=== PATIENT | male | born 1975 ===

== ENCOUNTER 2018-03-02 05:12 | Inpatient (IN) | payer MEDICAID, OTHER ==
[~2018-03-02] VITALS: Ht 182.9 cm; Wt 100.0 kg
[2018-03-02] MEDS ORDERED: THIAMINE 100MG TABLET PO ONE (05:30)
[2018-03-02] MEDS ORDERED: THIAMINE 100MG TABLET ONE (05:35)
[2018-03-02 05:47] LABS: BASOPHILS # (AUTO) 0.05 x10^3/uL (0-0.1); BASOPHILS % (AUTO) 1 % (0-1); EOSINOPHILS % (AUTO) 3 % (1-7); LYMPHOCYTES % (AUTO) 21 % (22-44); MD NO; MEAN CORPUSCULAR HEMOGLOBIN 31.2 pg (27.5-34.5); MEAN CORPUSCULAR HGB CONC 34.4 g/dL (33.2-36.2); MEAN CORPUSCULAR VOLUME 90.9 fL (81-97); MEAN PLATELET VOLUME 8.5 fL (7.4-10.4); MONOCYTES # (AUTO) 0.37 x10^3/uL (0.2-0.8); MONOCYTES % (AUTO) 10 % (2-9); NEUTROPHILS # (AUTO) 2.56 x10^3/uL (1.8-6.8); NEUTROPHILS % (AUTO) 66 % (42-75); PLATELET COUNT 132 x10^3/uL (130-400); RED BLOOD COUNT 5.08 x10^6/uL (4.38-5.82); RED CELL DISTRIBUTION WIDTH 14.4 % (9.4-14.8)
[2018-03-02 06:01] LABS: ALBUMIN 3.8 g/dL (3.4-5.0); ANION GAP 10 mmol/L (5-15); CALCIUM 8.4 mg/dL (8.5-10.1); CHLORIDE 109 mmol/L (98-107); CREATININE 0.83 mg/dL (0.7-1.3)
[2018-03-02] MEDS ORDERED: LORazepam 2 MG/ML, 1ML ONE (06:25)
[2018-03-02] MEDS ORDERED: SODIUM CHLORIDE 0.9% 1,000ML IVBOLUS ONE (06:30)
[2018-03-02] MEDS ORDERED: LORazepam 2 MG/ML, 1ML IVPush ONE (06:30)
[2018-03-02] MEDS ORDERED: LORazepam 2 MG/ML, 1ML IVPush PRN (07:30)
[2018-03-02 12:03] VITALS: BP 149/99
[2018-03-02 12:23] LABS: CLOSTRIDIUM DIFFICILE ANTIGEN NEGATIVE; CLOSTRIDIUM DIFFICILE TOXIN NEGATIVE (Negative)
[2018-03-02] MEDS ORDERED: hydrALAzine 20 MG/ML, 1ML IVPush PRN (13:30)
[2018-03-02] MEDS ORDERED: morphine SULFATE 10 MG/ML, 1ML IVPush PRN (13:30)
[2018-03-02] MEDS ORDERED: LORazepam 0.5MG TABLET PO PRN (13:30)
[2018-03-02] MEDS ORDERED: PROMETHAZINE 25 MG/ML, 1ML IM PRN (13:30)
[2018-03-02] MEDS ORDERED: OXYcodone IR 5MG TABLET PO PRN (13:30)
[2018-03-02] MEDS ORDERED: BISACODYL 10 MG SUPP PR PRN (13:30)
[2018-03-02] MEDS ORDERED: LORazepam 2 MG/ML, 1ML IV PRN ×5 (13:30)
[2018-03-02] MEDS ORDERED: LABETALOL 5MG/ML, 20ML IVPush PRN (13:30)
[2018-03-02] MEDS ORDERED: ONDANSETRON 2MG/ML, 2ML IVPush PRN (13:30)
[2018-03-02] MEDS ORDERED: LORazepam 1MG TABLET PO PRN ×4 (13:30)
[2018-03-02] MEDS ORDERED: POLYETHYLENE GLYCOL 17 GM PACKET PO PRN (13:30)
[2018-03-02] MEDS ORDERED: DOCUSATE 100 MG CAPSULE PO PRN (13:30)
[2018-03-02] MEDS ORDERED: ONDANSETRON ODT 4 MG PO PRN (13:30)
[2018-03-02] MEDS ORDERED: ENALAPRILAT 1.25 MG/ML, 2ML IVPush PRN (13:30)
[2018-03-02] MEDS: THIAMINE 100MG TABLET PO SCH (13:51)
[2018-03-02] MEDS: MULTIVITAMIN 1 TABLET PO SCH (13:52)
[2018-03-02] MEDS: FOLIC ACID 1 MG TABLET PO SCH (13:52)
[2018-03-02] MEDS: CHLORDIAZEPOXIDE 25 MG CAPSULE PO SCH ×3 (13:52→21:10)
[2018-03-02 13:58] VITALS: BP 153/98
[2018-03-02] MEDS ORDERED: ENOXAPARIN 40 MG/0.4 ML SQ SCH (14:00)
[2018-03-02] MEDS ORDERED: MAGNESIUM SULFATE PMX 2GM/50ML 50 ML IV ONE (14:00)
[2018-03-02 14:07] LABS: ALBUMIN 3.6 g/dL (3.4-5.0); BILIRUBIN, DIRECT 0.3 mg/dL (0.1-0.2)
[2018-03-02 14:16] LABS: BILIRUBIN,INDIRECT 0.9 mg/dL (0.0-2.0); BILIRUBIN,TOTAL 1.2 mg/dL (0.2-1.0); FREE T4 (FREE THYROXINE) 0.86 ng/dL (0.76-1.46); THYROID STIMULATING HORMONE 2.12 mIU/L (0.358-3.740); TOTAL PROTEIN 7.4 g/dL (6.4-8.2)
[2018-03-02] MEDS: D5%-0.9% NACL+KCL 20MEQ 1,000 ML IV SCH (14:53)
[2018-03-02] MEDS: NICOTINE 7 MG/24 HR PATCH.TD24 TD SCH (14:53)
[2018-03-02 15:46] LABS: HEMOGLOBIN A1C 6.9 % (4.2-6.3)
[2018-03-02] MEDS: FAMOTIDINE 20 MG/2 ML IVPush SCH (21:10)
[2018-03-02 21:23] VITALS: BP 157/93
[2018-03-03 02:20] VITALS: BP 132/92
[2018-03-03] MEDS: D5%-0.9% NACL+KCL 20MEQ 1,000 ML IV SCH (02:23)
[2018-03-03 04:36] LABS: MICROSCOPIC NOT IND
[2018-03-03 04:40] LABS: CULTURE INDICATED? NO
[2018-03-03 06:10] LABS: BASOPHILS # (AUTO) 0.03 x10^3/uL (0-0.1); BASOPHILS % (AUTO) 1 % (0-1); EOSINOPHILS # (AUTO) 0.09 x10^3/uL (0-0.4); EOSINOPHILS % (AUTO) 2 % (1-7); LYMPHOCYTES # (AUTO) 0.86 x10^3/uL (1-3.4); LYMPHOCYTES % (AUTO) 21 % (22-44); MD NO; MEAN CORPUSCULAR HEMOGLOBIN 30.8 pg (27.5-34.5); MEAN CORPUSCULAR HGB CONC 34.2 g/dL (33.2-36.2); MEAN PLATELET VOLUME 8.9 fL (7.4-10.4); MONOCYTES # (AUTO) 0.38 x10^3/uL (0.2-0.8); MONOCYTES % (AUTO) 9 % (2-9); NEUTROPHILS # (AUTO) 2.74 x10^3/uL (1.8-6.8); NEUTROPHILS % (AUTO) 67 % (42-75); PLATELET COUNT 123 x10^3/uL (130-400); RED BLOOD COUNT 4.84 x10^6/uL (4.38-5.82); RED CELL DISTRIBUTION WIDTH 14.1 % (9.4-14.8)
[2018-03-03 06:22] LABS: ALBUMIN 3.2 g/dL (3.4-5.0); ANION GAP 10 mmol/L (5-15); CALCIUM 7.9 mg/dL (8.5-10.1); CHLORIDE 104 mmol/L (98-107)
[2018-03-03 06:25] LABS: ALANINE AMINOTRANSFERASE 170 U/L (12-78); ALKALINE PHOSPHATASE 82 U/L (45-117); BILIRUBIN,TOTAL 1.4 mg/dL (0.2-1.0); CREATININE 0.65 mg/dL (0.7-1.3); TOTAL PROTEIN 6.8 g/dL (6.4-8.2); TRIGLYCERIDES 179 mg/dL (50-200)
[2018-03-03 06:26] LABS: CHOL/HDL RATIO 3.2; CHOLESTEROL, TOTAL 262 mg/dL (140-239); HDL CHOL % 31 % (26-37); HDL CHOLESTEROL (DIRECT) 82 mg/dL (40-60); LDL CHOLESTEROL,CALCULATED 144 mg/dL (54-169); LDL/HDL RATIO 1.8 (0.5-3.0); VLDL CHOLESTEROL 36 mg/dL (0-25)
[2018-03-03 07:17] VITALS: BP 148/92
[2018-03-03] MEDS: FAMOTIDINE 20 MG/2 ML IVPush SCH (10:19)
[2018-03-03] MEDS: THIAMINE 100MG TABLET PO SCH (10:20)
[2018-03-03] MEDS: CHLORDIAZEPOXIDE 25 MG CAPSULE PO SCH (10:20)
[2018-03-03] MEDS: MULTIVITAMIN 1 TABLET PO SCH (10:20)
[2018-03-03] MEDS: FOLIC ACID 1 MG TABLET PO SCH (10:20)
[2018-03-03] MEDS: NICOTINE 7 MG/24 HR PATCH.TD24 TD SCH (12:20)
[2018-03-03 13:19] VITALS: BP 152/110
[2018-03-03] MEDS ORDERED: FAMOTIDINE 20 MG TABLET PO SCH (21:00)
== END 2018-03-03 13:36 | disposition left against medical advice (07) | DRG 100 ==
LOC: ED 07:13 → EDIP 07:14 → ED 07:32 → 4EST 09:24
PROVIDERS: ADMIT Internal Medicine; ATTEND Internal Medicine
DX: R56.9 Unspecified convulsions (principal); J96.01 Acute respiratory failure with hypoxia; F10.231 Alcohol dependence with withdrawal delirium; F17.210 Nicotine dependence, cigarettes, uncomplicated; I10 Essential (primary) hypertension; M47.812 Spondylosis without myelopathy or radiculopathy, cervical region; S00.03XA Contusion of scalp, initial encounter; W01.0XXA Fall on same level from slipping, tripping and stumbling without subsequent striking against object, initial encounter; Y93.89 Activity, other specified; Y92.89 Other specified places as the place of occurrence of the external cause; Y99.8 Other external cause status
CPT/HCPCS: 36415; 72050; 99285; S0028; 70450; 72125; 80048; 80053; 80061; 80076; 80307; 81003; 82040; 82140; 82550; 83036; 83735; 84439; 84443; 85025; 87324; 93005; 96374; J1650; J2060; J3475; J3480; J7030

== ENCOUNTER 2018-04-13 18:35 | Emergency (ER) | payer MEDICAID ==
[~2018-04-13] VITALS: Ht 182.9 cm; Wt 100.0 kg
[2018-04-13 23:03] VITALS: BP 125/87
== END 2018-04-13 23:10 | disposition home or self-care (01) ==
LOC: ED 19:48
DX: F10.220 Alcohol dependence with intoxication, uncomplicated (principal)
CPT/HCPCS: 99283

== ENCOUNTER 2019-03-08 13:50 | Emergency (ER) | payer MEDICAID, OTHER ==
[~2019-03-08] VITALS: Ht 182.9 cm; Wt 100.0 kg
[2019-03-08 17:18] VITALS: BP 153/87
== END 2019-03-08 17:45 | disposition home or self-care (01) ==
LOC: ED 17:05
DX: G40.409 Other generalized epilepsy and epileptic syndromes, not intractable, without status epilepticus (principal); K70.10 Alcoholic hepatitis without ascites; F10.10 Alcohol abuse, uncomplicated
CPT/HCPCS: 36415; 80053; 80307; 82140; 85025; 93005; 96365; 96375; 96376; 99284; J2060; J3411; J7030

== ENCOUNTER 2019-03-15 08:11 | Emergency (ER) | payer OTHER ==
[~2019-03-15] VITALS: Ht 167.6 cm; Wt 72.7 kg
[2019-03-15 11:02] VITALS: BP 132/86
== END 2019-03-15 12:52 | disposition home or self-care (01) ==
LOC: ED 09:53
DX: F10.220 Alcohol dependence with intoxication, uncomplicated (principal)
CPT/HCPCS: 99283

== ENCOUNTER 2019-06-23 20:40 | Emergency (ER) | payer MEDICAID ==
[~2019-06-23] VITALS: Ht 180.3 cm; Wt 100.0 kg
[2019-06-23 20:49] VITALS: BP 132/85
--- NOTE | 2019-06-23 22:26 | NUR ---
PT SLEEPING, NO COMPLAINTS
--- NOTE | 2019-06-24 00:04 | NUR ---
PT SLEEPING, NO COMPLAINTS
== END 2019-06-24 00:53 | disposition home or self-care (01) ==
LOC: ED 23:54
DX: F10.229 Alcohol dependence with intoxication, unspecified (principal); R56.9 Unspecified convulsions; F17.200 Nicotine dependence, unspecified, uncomplicated; Y90.0 Blood alcohol level of less than 20 mg/100 ml; I10 Essential (primary) hypertension
CPT/HCPCS: 99283

== ENCOUNTER 2019-08-13 15:58 | Emergency (ER) | payer MEDICAID ==
[~2019-08-13] VITALS: Ht 182.9 cm; Wt 120.0 kg
[2019-08-13] MEDS ORDERED: LIDOCAINE 1%-EPI 1:100K, 20ML SQ ONE (16:30)
--- NOTE | 2019-08-13 16:30 | NUR ---
THIS IS A 44 YO M BIB [facility] FOR GLF W/ NO LOC. LAC ABOVE LT EYE. PT ADMITS TO DRINKING 2/5 LIQUOR TODAY. NADN. VS STABLE. PT IS RESTING ON Aqua[employer]. CALL LIGHT IN REACH. DENIES FURTHER NEEDS AT THIS TIME. WILL CONTINUE TO MONITOR.
--- NOTE | 2019-08-13 16:43 | NUR ---
TECH IN ROOM FOR WOUND IRRIGATION.
--- NOTE | 2019-08-13 17:05 | NUR ---
TAKEN TO CT
[2019-08-13] MEDS ORDERED: LIDOCAINE 1%-EPI 1:100K, 20ML ONE (17:20)
[2019-08-13 18:59] VITALS: BP 118/79
--- NOTE | 2019-08-13 19:00 | NUR ---
PT SLEEPING ON GURNEY. CHEST RISE AND FALL NOTED. VS STABLE.
--- NOTE | 2019-08-13 19:54 | NUR ---
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
--- NOTE | 2019-08-13 19:57 | NUR ---
Patient given discharge instructions and they have confirmed that they understand the instructions. Patient ambulatory with steady gait.
== END 2019-08-13 20:02 | disposition home or self-care (01) ==
LOC: ED 16:14
DX: S01.81XA Laceration without foreign body of other part of head, initial encounter (principal); F10.10 Alcohol abuse, uncomplicated; Y90.0 Blood alcohol level of less than 20 mg/100 ml; W18.30XA Fall on same level, unspecified, initial encounter; Y93.89 Activity, other specified; Y92.410 Unspecified street and highway as the place of occurrence of the external cause; Y99.8 Other external cause status
CPT/HCPCS: 12051; 70450; 99284

== ENCOUNTER 2019-08-22 19:15 | Emergency (ER) | payer MEDICAID ==
[~2019-08-22] VITALS: Ht 180.3 cm; Wt 97.0 kg
--- NOTE | 2019-08-22 19:27 | NUR ---
TASK RN: PT BIB [facility] FOR ACUTE ETOH INTOXICATION. PER EMS, PT REFUSED VITAL SIGNS. PT ARRIVED TO ED SHOUTING AT STAFF ASKING FOR A SANDWICH. PER EMS, LAST ETOH USE WAS 3 48 OZ ALCHOLIC BEVERAGES TODAY. PT ON ROOM AIR, ON MONITOR, CALL LIGHT WITHIN REACH AND SIDERAIL X [address]. PT REFUSING TO CHANGE INTO GOWN AND ASKING FOR FOOD. REPORT GIVEN TO ROLANDA BUCKLEY.
--- NOTE | 2019-08-22 20:01 | NUR ---
PT CURRENTLY RESTING ON [employer]. NAD NOTED. SKIN WARM AND DRY. DIFFUSE RASH NOTED TO LOWER ABD. PT AO X 4, BUT DROWSY WITH SLURRED SPEECH. ETOH ODOR NOTED. 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
[2019-08-22 20:06] LABS: ANION GAP 9 mmol/L (5-15); CALCIUM 8.7 mg/dL (8.5-10.1); CHLORIDE 105 mmol/L (98-107); CREATININE 0.92 mg/dL (0.7-1.3)
--- NOTE | 2019-08-22 20:35 | NUR ---
PT STANDING IN ROOM AND PEEING ALL OVER FLOOR. PT PROVIDED WITH URINAL BY RN, PT DECLINED URINAL. PT ASSISTED SLEF BACK TO BED.
--- NOTE | 2019-08-22 21:29 | NUR ---
RN AND EMT ATTEMPTED TO AMBULATE PT. PT HAS SLURRED SPEECH AND REFUSED TO GET UP. PT HAS STRONG ETOH ODOR. RN ATTEMPTED TO REPLACE PULSE OX AND BP CUFF. PT RIPPED THEM OFF AND REFUSES TO WEAR THEM.
--- NOTE | 2019-08-22 22:07 | NUR ---
REPORT TO ROLANDA GAGE WHO ASSUMED CARE OF PT.
--- NOTE | 2019-08-22 22:46 | NUR ---
unable to make pt ambulate at this time pt is still sleeping pul ox intact
[2019-08-22 23:15] VITALS: BP 129/93
== END 2019-08-22 23:24 | disposition home or self-care (01) ==
LOC: ED 23:07
DX: F10.229 Alcohol dependence with intoxication, unspecified (principal); F17.200 Nicotine dependence, unspecified, uncomplicated; Y90.0 Blood alcohol level of less than 20 mg/100 ml
CPT/HCPCS: 36415; 80048; 80307; 99283

== ENCOUNTER 2019-08-28 07:58 | Inpatient (IN) | payer MEDICAID ==
[~2019-08-28] VITALS: Ht 172.7 cm; Wt 103.0 kg
[2019-08-28] MEDS ORDERED: SODIUM CHLORIDE 0.9% 1,000 ML IV ONE ×2 (08:09→12:00)
[2019-08-28] MEDS ORDERED: PANTOPRAZOLE 80 MG in SODIUM CHLORIDE 0.9% 50 ML IVPB ONE (08:29)
[2019-08-28] MEDS ORDERED: SODIUM CHLORIDE 0.9% 1,000ML IVBOLUS ONE ×2 (08:30→11:00)
[2019-08-28] MEDS ORDERED: PLEASE ENTER HEIGHT AND WEIGHT MC SCH (08:30)
[2019-08-28] MEDS ORDERED: SODIUM CHLORIDE FLUSH 10ML SYR IVF ONE (08:30)
[2019-08-28] MEDS ORDERED: PANTOPRAZOLE 80 MG in SODIUM CHLORIDE 0.9% 100 ML IV SCH (08:45)
[2019-08-28 09:59] LABS: BASOPHILS # (AUTO) 0.04 x10^3/uL (0-0.1); BASOPHILS % (AUTO) 1 % (0-1); EOSINOPHILS % (AUTO) 0 % (1-7); LYMPHOCYTES # (AUTO) 0.32 x10^3/uL (1-3.4); LYMPHOCYTES % (AUTO) 5 % (22-44); MD NO; MEAN CORPUSCULAR HEMOGLOBIN 30.8 pg (27.5-34.5); MEAN CORPUSCULAR HGB CONC 33.5 g/dL (33.2-36.2); MEAN CORPUSCULAR VOLUME 91.8 fL (81-97); MEAN PLATELET VOLUME 8.9 fL (7.4-10.4); MONOCYTES # (AUTO) 0.61 x10^3/uL (0.2-0.8); MONOCYTES % (AUTO) 10 % (2-9); NEUTROPHILS # (AUTO) 5.21 x10^3/uL (1.8-6.8); NEUTROPHILS % (AUTO) 84 % (42-75); PLATELET COUNT 108 x10^3/uL (130-400); RED BLOOD COUNT 4.08 x10^6/uL (4.38-5.82); RED CELL DISTRIBUTION WIDTH 14.9 % (9.4-14.8)
--- NOTE | 2019-08-28 10:02 | NUR ---
PT TO CT VIA AMAN[facility]
--- NOTE | 2019-08-28 10:04 | NUR ---
PT POOR HISTORIAN TO EVENTS OF LAST NIGHT. REPORTS VOMITTING BLOOD THIS AM AND NOSE BLEED.
[2019-08-28 10:10] LABS: ALANINE AMINOTRANSFERASE 57 U/L (12-78); ANION GAP 16 mmol/L (5-15); CALCIUM 8.5 mg/dL (8.5-10.1); CHLORIDE 99 mmol/L (98-107); CREATININE 0.94 mg/dL (0.7-1.3); INTERNATIONAL NORMALIZED RATIO 1.07 (0.93-1.1); PROTHROMBIN TIME 11.4 Seconds (9.6-11.5)
[2019-08-28 10:12] LABS: ALKALINE PHOSPHATASE 90 U/L (45-117); BILIRUBIN,TOTAL 1.4 mg/dL (0.2-1.0); TOTAL PROTEIN 7.7 g/dL (6.4-8.2)
--- NOTE | 2019-08-28 10:23 | NUR ---
PT RETURNED FROM CT
[2019-08-28] MEDS ORDERED: THIAMINE 100 MG in SODIUM CHLORIDE 0.9% 50 ML IV SCH (11:00)
[2019-08-28 11:46] LABS: MICROSCOPIC AUTO
[2019-08-28 11:49] LABS: CULTURE INDICATED? NO
[2019-08-28] MEDS ORDERED: SODIUM CHLORIDE FLUSH 10ML SYR IVF PRN (12:00)
[2019-08-28 12:14] LABS: ACETONE, SERUM Negative (Negative)
[2019-08-28 13:07] VITALS: BP 131/76
[2019-08-28] MEDS ORDERED: D5%-0.9% NACL 1,000 ML IV SCH (16:00)
[2019-08-28] MEDS ORDERED: LORazepam 1MG TABLET PO PRN ×4 (16:30)
[2019-08-28] MEDS ORDERED: LORazepam 2 MG/ML, 1ML IV PRN ×5 (16:30)
[2019-08-28] MEDS ORDERED: LORazepam 0.5MG TABLET PO PRN (16:30)
[2019-08-28] MEDS ORDERED: hydrALAzine 20 MG/ML, 1ML IVPush PRN (16:30)
[2019-08-28] MEDS ORDERED: morphine SULFATE 10 MG/ML, 1ML IVPush PRN (17:00)
[2019-08-28] MEDS ORDERED: POLYETHYLENE GLYCOL 17 GM PACKET PO PRN (17:00)
[2019-08-28] MEDS ORDERED: BISACODYL 10 MG SUPP PR PRN (17:00)
[2019-08-28] MEDS ORDERED: OXYcodone IR 5MG TABLET PO PRN (17:00)
[2019-08-28] MEDS ORDERED: ONDANSETRON 2MG/ML, 2ML IVPush PRN (17:00)
[2019-08-28] MEDS ORDERED: PROMETHAZINE 25 MG/ML, 1ML IM PRN (17:00)
[2019-08-28] MEDS ORDERED: ONDANSETRON ODT 4 MG PO PRN (17:00)
[2019-08-28 17:14] LABS: FREE T4 (FREE THYROXINE) 1.03 ng/dL (0.76-1.46)
[2019-08-28] MEDS: LACTATED RINGERS 1,000 ML IV SCH (17:19)
[2019-08-28] MEDS: PANTOPRAZOLE 40 MG IV IVPush SCH (17:20)
[2019-08-28] MEDS: INSULIN LISPRO 100 UNITS/ML, PEN SQ-INSULIN SCH ×2 (18:14→21:00)
[2019-08-28 19:50] VITALS: BP 136/80
[2019-08-28] MEDS ORDERED: DOCUSATE 100 MG CAPSULE PO PRN (21:00)
[2019-08-29] MEDS: LACTATED RINGERS 1,000 ML IV SCH ×2 (00:21→08:08)
[2019-08-29 01:44] VITALS: BP 112/72
[2019-08-29] MEDS: PANTOPRAZOLE 40 MG IV IVPush SCH (05:47)
[2019-08-29 06:28] VITALS: BP 120/73
[2019-08-29 06:46] LABS: MEAN CORPUSCULAR HEMOGLOBIN 30.5 pg (27.5-34.5); MEAN CORPUSCULAR HGB CONC 33.3 g/dL (33.2-36.2); MEAN CORPUSCULAR VOLUME 91.8 fL (81-97); RED BLOOD COUNT 3.96 x10^6/uL (4.38-5.82); RED CELL DISTRIBUTION WIDTH 14.7 % (9.4-14.8)
[2019-08-29 06:55] LABS: CHLORIDE 102 mmol/L (98-107)
[2019-08-29 07:12] LABS: ANION GAP 8 mmol/L (5-15); CALCIUM 7.7 mg/dL (8.5-10.1); CREATININE 0.66 mg/dL (0.7-1.3)
[2019-08-29 07:13] LABS: ALANINE AMINOTRANSFERASE 49 U/L (12-78); ALBUMIN 2.5 g/dL (3.4-5.0); ALKALINE PHOSPHATASE 74 U/L (45-117); BILIRUBIN,TOTAL 2.1 mg/dL (0.2-1.0); CHOL/HDL RATIO 2.8; CHOLESTEROL, TOTAL 229 mg/dL (140-239); HDL CHOL % 35 % (26-37); HDL CHOLESTEROL (DIRECT) 81 mg/dL (40-60); LDL CHOLESTEROL,CALCULATED 126 mg/dL (54-169); LDL/HDL RATIO 1.6 (0.5-3.0); TOTAL PROTEIN 6.8 g/dL (6.4-8.2); TRIGLYCERIDES 110 mg/dL (50-200); VLDL CHOLESTEROL 22 mg/dL (0-25)
[2019-08-29 07:20] LABS: BASOPHILS # (AUTO) 0.04 x10^3/uL (0-0.1); BASOPHILS % (AUTO) 1 % (0-1); EOSINOPHILS # (AUTO) 0.05 x10^3/uL (0-0.4); EOSINOPHILS % (AUTO) 1 % (1-7); LYMPHOCYTES # (AUTO) 0.73 x10^3/uL (1-3.4); LYMPHOCYTES % (AUTO) 18 % (22-44); MD SCAN; MONOCYTES # (AUTO) 0.53 x10^3/uL (0.2-0.8); MONOCYTES % (AUTO) 13 % (2-9); NEUTROPHILS # (AUTO) 2.79 x10^3/uL (1.8-6.8); NEUTROPHILS % (AUTO) 68 % (42-75); PLATELET COUNT 78 x10^3/uL (130-400)
[2019-08-29] MEDS: INSULIN LISPRO 100 UNITS/ML, PEN SQ-INSULIN SCH (07:27)
[2019-08-29] MEDS ORDERED: FOLIC ACID 1 MG TABLET PO SCH (09:00)
[2019-08-29] MEDS ORDERED: MULTIVITAMIN 1 TABLET PO SCH (09:00)
== END 2019-08-29 10:54 | disposition home or self-care (01) | DRG 151 ==
LOC: ED 08:21 → EDIP 12:00 → 4EST 12:54
PROVIDERS: ADMIT Internal Medicine; ATTEND Family Medicine
DX: R04.0 Epistaxis (principal); T69.022A Immersion foot, left foot, initial encounter; T69.021A Immersion foot, right foot, initial encounter; E87.2 Acidosis; F10.239 Alcohol dependence with withdrawal, unspecified; K92.0 Hematemesis; D69.6 Thrombocytopenia, unspecified; E11.65 Type 2 diabetes mellitus with hyperglycemia; E83.51 Hypocalcemia; E87.6 Hypokalemia; E88.09 Other disorders of plasma-protein metabolism, not elsewhere classified; Y90.9 Presence of alcohol in blood, level not specified; F17.210 Nicotine dependence, cigarettes, uncomplicated; I10 Essential (primary) hypertension; J32.9 Chronic sinusitis, unspecified; Z91.19 Patient's noncompliance with other medical treatment and regimen; Z79.4 Long term (current) use of insulin; M47.812 Spondylosis without myelopathy or radiculopathy, cervical region; M19.90 Unspecified osteoarthritis, unspecified site; K70.10 Alcoholic hepatitis without ascites; K29.20 Alcoholic gastritis without bleeding; W18.39XA Other fall on same level, initial encounter; Y93.89 Activity, other specified; Y92.238 Other place in hospital as the place of occurrence of the external cause; Y99.8 Other external cause status; Z53.29 Procedure and treatment not carried out because of patient's decision for other reasons
CPT/HCPCS: 36415; 70450; 71045; 80053; 80061; 80307; 81001; 82010; 82962; 83036; 83605; 83690; 83735; 84100; 84439; 84443; 85025; 85610; 85730; 86850; 86900; 93005; 99285; G0378; J3411; C9113; J2060; J2270; J7030; J7120